=== PATIENT | male | born 1960 | race Caucasian/White ===

== ENCOUNTER → 2019-04-21 | Emergency (ER) | payer BC ==
[~2019-04-21] VITALS: Ht 185.4 cm; Wt 86.2 kg
[~2019-04-21] MED LIST: CADUET 5 MG-201 EACH PO; IBUPROFEN600 MG ORAL
[2019-04-21 13:17] VITALS: BP 161/103
--- NOTE | 2019-04-21 13:20 | NUR ---
ED Nurse Note: Pt ambulated into ED from home CO of fall at home. Pt reports hitting his head on doorknob during fall. Pt denies radiating pain, vision changes, loss of consciousness, dizziness. ERMD at bedside.
--- NOTE | 2019-04-21 13:50 | NUR ---
ED Nurse Note: pT RECEIVED ALL MEDICATIONS, TOLERATED WELL. NO S/S OF DISTRESS, NO ADVERSE REACTIONS, VS IN STABLE CONDITION
--- NOTE | 2019-04-21 13:52 | NUR ---
ED Nurse Note: Pt taken to CT in stable condition, no s/s of distress noted, vs stable.
--- NOTE | 2019-04-21 14:05 | NUR ---
ED Nurse Note: PT RETURNED FROM CT Addendum: 04/21/19 at 1425 by [facility] ED Nurse Note: PT RETURNED FROM CT IN STABLE CONDITION. AWAITING RESULTS
--- NOTE | 2019-04-21 14:17 | Diagnostic Imaging Report ---
Indications: Trauma, head pain Technique: Spiral acquisitions obtained through the brain. Angled axial and coronal 5 x 5 mm slices were reconstructed. Total dose length product 1426 mGycm. CTDI vol(s) 62 mGy. Dose reduction achieved using automated exposure control Comparison: None. Findings: No acute intracranial hemorrhage or edema. No mass effect nor midline shift. Normal kenney-white differentiation. There is mild cerebral cortical volume loss, slightly advanced for age. The calvarium is intact. The visualized orbits and sinuses are unremarkable. The mastoids are clear. Impression: Negative for acute intracranial bleed or mass effect The CT scanner at [facility] is accredited by the [employer] and the scans are performed using protocols designed to limit radiation exposure to as low as reasonably achievable to attain images of sufficient resolution adequate for diagnostic evaluation.
--- NOTE | 2019-04-21 15:05 | Emergency Room Report ---
History of Present Illness General Chief Complaint: Multiple Trauma/Fall Source: Patient Present Illness HPI 59-year-old male with no significant past medical history here complaining of left-sided headache after hitting his head to the doorknob earlier today. Patient reports that he missed a step and he accidentally hit the doorknob. Denies any loss of consciousness and dizziness at this time. Complains of a 3 out of 10 pain left temporal area. Denies any bleeding through the ears or nasal bleeding. No bony tenderness noted. Denies dizziness, nausea vomiting at this time. Denies all other injuries. Patient is not currently on any blood thinners. Allergies: Coded Allergies: PENICILLINS (Verified Allergy, Unknown, 11/22/14) Patient History Past Medical History: see triage record Past Surgical History: unable to obtain Pertinent Family History: none Immunizations: UTD Reviewed Nursing Documentation: PMH: Agreed; PSxH: Agreed Nursing Documentation-PM Past Medical History: No History, Except For Hx Cardiac Problems: Yes Hx Hypertension: Yes Hx Cancer: No Hx Gastrointestinal Problems: No Hx Neurological Problems: No Review of Systems All Other Systems: negative except mentioned in HPI Physical Exam Vital Signs Date Time Temp Pulse Resp B/P (MAP) Pulse Ox O2 Delivery O2 Flow Rate FiO2 04/21/19 13:17 98.2 83 17 161/103 (122) 99 Room Air Sp02 EP Interpretation: reviewed, normal General Appearance: no apparent distress, alert, GCS 15, non-toxic Head: normocephalic, atraumatic Eyes: bilateral eye normal inspection, bilateral eye PERRL ENT: hearing grossly normal, normal pharynx, no angioedema, normal voice Neck: full range of motion, supple, thyroid normal, no meningismus, supple/symm /no masses Respiratory: chest non-tender, lungs clear, normal breath sounds, no rhonchi, no respiratory distress, no retraction, no wheezing, speaking full sentences Cardiovascular #1: regular rate, rhythm, no edema, no murmur, normal capillary refill Cardiovascular #2: 2+ carotid (R), 2+ carotid (L) Gastrointestinal: normal bowel sounds, non tender, soft, non-distended, no guarding, no rebound Rectal: deferred Musculoskeletal: back normal, normal range of motion, gait/station normal, non- tender Neurologic: alert, motor strength/tone normal, oriented x3, sensory intact, responsive, speech normal Psychiatric: judgement/insight normal, memory normal, mood/affect normal, no suicidal/homicidal ideation Skin: no rash Lymphatic: no adenopathy Medical Decision Making PA Attestation All my diagnosis and treatment plans were reviewed ad discussed with my supervising physician Dr. Covington Diagnostic Impression: Primary Impression: Head contusion ER Course 59-year-old male with no significant past medical history here complaining of left-sided headache after hitting his head to the doorknob earlier today. Patient reports that he missed a step and he accidentally hit the doorknob. Denies any loss of consciousness and dizziness at this time. Complains of a 3 out of 10 pain left temporal area. Denies any bleeding through the ears or nasal bleeding. No bony tenderness noted. Denies dizziness, nausea vomiting at this time. Denies all other injuries. Patient is not currently on any blood thinners. Ddx considered but are not limited to: cerebral hematoma, concussion, skull fracture, head contusion Vital signs: are WNL, pt. is afebrile H&PE are most consistent with: Head contusion ORDERS: head CT no contrast, Motrin ED INTERVENTIONS: None required at this time. DISCHARGE: At this time pt. is stable for d/c to home. Will provide printed patient care instructions, and any necessary prescriptions. Care plan and follow up instructions have been discussed with the patient prior to discharge. Patient to take medication as directed, follow-up with her primary care provider, if worsening symptoms return to emergency room CT/MRI/US Diagnostic Results CT/MRI/US Diagnostic Results : Imaging Test Ordered: Head CT no contrast Impression No intracranial bleed, no skull fracture Last Vital Signs Date Time Temp Pulse Resp B/P (MAP) Pulse Ox O2 Delivery O2 Flow Rate FiO2 04/21/19 13:17 98.2 83 17 161/103 (122) 99 Room Air Disposition: HOME, SELF-CARE Condition: Stable Scripts Ibuprofen* (MOTRIN*) 600 Mg Tablet 600 MG ORAL Q8H PRN for For Pain, #30 TAB 0 Refills Prov: Sirena Covington DO 04/21/19 Patient Instructions: Facial or Scalp Contusion, Gyaa-we-Oref Jcarlos Granados Apr 21, 2019 15:05
== END | disposition home or self-care (01) ==
LOC: EMR 15:50
DX: S00.83XA Contusion of other part of head, initial encounter (principal); I11.9 Hypertensive heart disease without heart failure; W18.49XA Other slipping, tripping and stumbling without falling, initial encounter; Y93.01 Activity, walking, marching and hiking; Y92.9 Unspecified place or not applicable; Z88.0 Allergy status to penicillin
CPT/HCPCS: 70450; 99284